=== PATIENT | female | born 1960 | race Caucasian/White ===

== ENCOUNTER → 2017-10-19 | Outpatient (CLI) | payer BC, OTHER ==
[~2017-10-19] MED LIST: CADUET 5 MG-401 EACH PO; CARBAMAZEPINE400 MG PO; DEPAKOTE ER500 MG PO; HYDROCHLOROTH12.5 M1 PO; HYDROCHLOROTHIA25 M1 PO; LEVOTHYROXIN0.088 MG PO; LEVOTHYROXINE0.05 MG PO; NORCO 5-325 TA1 EACH PO; NORFLEX100 MG PO; TEGRETOL XR100 MG PO; TEGRETOL200 MG; VICOPROFEN 2001 EACH PO; ZARONTIN250 MG PO
== END ==
LOC: SLEEPLAB 18:35
DX: G47.33 Obstructive sleep apnea (adult) (pediatric) (principal); R53.83 Other fatigue

== ENCOUNTER 2020-12-04 12:20 | Emergency (ER) | payer BC, OTHER ==
[~2020-12-04] VITALS: Ht 160 cm; Wt 86.2 kg
[2020-12-04 13:22] LABS: BASOPHILS 0.7 % (0.0-2.0); EOSINOPHILS 0.4 % (0.0-3.0); HEMATOCRIT 39.9 % (37.0-47.0); HEMOGLOBIN 13.3 gm/dL (12.0-15.0); LYMPHOCYTES 21.3 % (24.0-44.0); MCH 30.4 pg (26.0-34.0); MCHC 33.3 g/dL (28.0-37.0); MCV 91.3 fL (80.0-100.0); MONOCYTES 5.2 % (1.0-8.0); PLATELET COUNT 259 thou/uL (150-400); POLYS 72.4 % (36.0-66.0); RBC 4.37 mil/uL (4.20-5.00); RDW 12.3 % (10.5-14.5)
[2020-12-04 13:39] LABS: CALCIUM 8.7 mg/dL (8.5-10.1); CREATININE 0.9 mg/dL (0.6-1.0); POTASSIUM 3.8 mmol/L (3.5-5.1)
[2020-12-04 15:21] VITALS: BP 136/74
== END 2020-12-04 15:22 | disposition home or self-care (01) ==
LOC: ER 12:20
PROVIDERS: Emergency Medicine
DX: S16.1XXA Strain of muscle, fascia and tendon at neck level, initial encounter (principal); S30.0XXA Contusion of lower back and pelvis, initial encounter; S00.83XA Contusion of other part of head, initial encounter; S40.011A Contusion of right shoulder, initial encounter; R56.9 Unspecified convulsions; Z79.899 Other long term (current) drug therapy; W18.39XA Other fall on same level, initial encounter; Y93.89 Activity, other specified; Y92.89 Other specified places as the place of occurrence of the external cause; Y99.8 Other external cause status

== ENCOUNTER 2021-03-17 11:28 | Emergency (ER) | payer BC, OTHER ==
[~2021-03-17] VITALS: Ht 160 cm; Wt 86.6 kg
[2021-03-17] MEDS ORDERED: COZAAR 25 MG TA25 M1 PO (12:11)
[2021-03-17 13:12] LABS: ABSOLUTE NEUTROPHILS 5.5 thou/uL (1.4-8.2); BASOPHILS 0.7 % (0.0-2.0); EOSINOPHILS 0.7 % (0.0-3.0); HEMATOCRIT 40.7 % (37.0-47.0); HEMOGLOBIN 13.8 gm/dL (12.0-15.0); LYMPHOCYTES 34.4 % (24.0-44.0); MCHC 33.9 g/dL (28.0-37.0); MCV 91.4 fL (80.0-100.0); MONOCYTES 7.8 % (1.0-8.0); PLATELET COUNT 257 thou/uL (150-400); POLYS 56.4 % (36.0-66.0); RBC 4.45 mil/uL (4.20-5.00); RDW 12.7 % (10.5-14.5); WBC 9.7 thou/uL (4.0-11.0)
[2021-03-17 13:28] LABS: CALCIUM 8.8 mg/dL (8.5-10.1); CREATININE 0.7 mg/dL (0.6-1.0); POTASSIUM 3.7 mmol/L (3.5-5.1)
[2021-03-17] MEDS ORDERED: PERIDEX 0.12%473 M1 SWISH&SPIT (14:19)
[2021-03-17] MEDS ORDERED: AUGMENTIN 875-1 EACH PO (14:19)
[2021-03-17 14:46] VITALS: BP 148/80
== END 2021-03-17 14:46 | disposition home or self-care (01) ==
LOC: ER 11:28
PROVIDERS: Physician Assistant
DX: R56.9 Unspecified convulsions (principal); S01.512A Laceration without foreign body of oral cavity, initial encounter; X58.XXXA Exposure to other specified factors, initial encounter; Y93.89 Activity, other specified; Y92.89 Other specified places as the place of occurrence of the external cause; Y99.8 Other external cause status

== ENCOUNTER → 2021-04-29 | Outpatient (CLI) | payer OTHER ==
[~2021-04-29] MED LIST changes: +AUGMENTIN 875-1 EACH PO; +COZAAR 25 MG TA25 M1 PO; +PERIDEX 0.12%473 M1 SWISH&SPIT
== END ==
LOC: CAT 11:03
PROVIDERS: ATTEND Internal Medicine Cardiovascular Disease
DX: Z13.6 Encounter for screening for cardiovascular disorders (principal); E78.00 Pure hypercholesterolemia, unspecified; I25.10 Atherosclerotic heart disease of native coronary artery without angina pectoris

== ENCOUNTER → 2021-05-08 | Outpatient (CLI) | payer BC, OTHER | LOC: SJCVCIMAG 11:37 | PROVIDERS: ATTEND Internal Medicine Pulmonary Disease | DX: I25.10 Atherosclerotic heart disease of native coronary artery without angina pectoris (principal); R06.00 Dyspnea, unspecified; R53.83 Other fatigue; R93.1 Abnormal findings on diagnostic imaging of heart and coronary circulation; I10 Essential (primary) hypertension; E78.5 Hyperlipidemia, unspecified ==